=== PATIENT | male | born 1985 | race Caucasian/White ===

== ENCOUNTER 2017-01-26 12:46 | Outpatient (CLI) | payer SELFPAY ==
--- NOTE | 2017-01-26 13:29 | DIAGNOSTIC IMAGING REPORT ---
PROCEDURE: XR FOREARM - LEFT INDICATION: FOREARM PAIN TECHNIQUE: AP and lateral views. COMPARISON: None. FINDINGS: Bones, joint spaces and soft tissues are normal. IMPRESSION: 1. Negative left forearm.
== END 2017-01-26 23:00 | disposition home or self-care (01) ==
LOC: XR SRH 12:46
DX: M79.632 Pain in left forearm (principal)